=== PATIENT | female | born 1980 | race Caucasian/White ===

== ENCOUNTER 2016-10-26 17:38 | Emergency (ER) | payer SELFPAY ==
[~2016-10-26] VITALS: Ht 152.4 cm; Wt 56.0 kg
[~2016-10-26 17:38] MED LIST: ALDA100T PO; KEPP1000 PO; RIFA550 PO; TENO300 PO; ZOFR4TAB3 SL
[2016-10-26 17:42] VITALS: BP 167/93; PULSE 69; RESP 18; TEMP 98.7; O2SAT 100
[2016-10-26] MEDS ORDERED: SODIUM CHLOR 0.9% 1000 ML INJ 1,000 ML IV ONE (17:56)
[2016-10-26] MEDS ORDERED: LORazepam 2 MG/ML VIAL IVS ONE (18:00)
[2016-10-26] MEDS ORDERED: SODIUM CHLORIDE 0.9% FLUSH 10 ML FLUSH IVF PRN (18:00)
[2016-10-26 18:20] VITALS: BP 129/87; PULSE 62; RESP 13; TEMP 98.7; O2SAT 100
[2016-10-26 18:21] VITALS: BP 129/87; PULSE 63; RESP 13; O2SAT 100
[2016-10-26 18:21] LABS: AUTOMATED NEUTROPHIL # 3.1 TH/MM3 (1.8-7.7); BASOPHIL % 0.3 % (0.0-2.0); EOSINOPHIL # 0.1 TH/MM3 (0-0.4); EOSINOPHIL % 1.5 % (0.0-4.0); HEMATOCRIT 40.7 % (35.0-46.0); HEMO FLAGS DIFF FINAL; LYMPH % 20.6 % (9.0-44.0); LYMPHOCYTE # 0.9 TH/MM3 (1.0-4.8); MEAN CELL VOLUME 89.5 FL (80.0-100.0); MEAN CORPUSCULAR HGB CONC 34.6 % (32.0-36.0); MONO % 7.9 % (0.0-8.0); NEUT % 69.7 % (16.0-70.0); PLATELET COUNT 122 TH/MM3 (150-450); RED BLOOD COUNT 4.54 MIL/MM3 (4.00-5.30); RED CELL DISTRIBUTION WIDTH 12.5 % (11.6-17.2); WHITE BLOOD COUNT 4.4 TH/MM3 (4.0-11.0)
[2016-10-26] MEDS ORDERED: VIRE300T2 PO (18:26)
[2016-10-26] MEDS ORDERED: SUBO8MIS SL (18:26)
[2016-10-26] MEDS ORDERED: XIFA550T4 PO (18:26)
[2016-10-26] MEDS ORDERED: TRAZ100T6 PO (18:26)
[2016-10-26] MEDS ORDERED: ALDA100T PO (18:26)
[2016-10-26] MEDS ORDERED: KEPP10002 PO (18:26)
--- NOTE | 2016-10-26 18:29 | PD ---
HPI Chief Complaint: Seizure Time Seen by Provider: 17:47 Travel History International Travel<30 days: No Contact w/Intl Traveler<30days: No Traveled to known affect area: No History of Present Illness HPI Patient is a 35-year-old female patient is a history of epilepsy. She takes Keppra 1000 mg twice daily has been strictly compliant. She reports over the last 3 days she has had frequent seizure type episodes. [place] and was observed by her daughter to have had 2 seizure-like episodes lasting almost 2 minutes each. A postictal state occurs in between the seizure- like episodes. In the ER she reports feeling somewhat "thick headed" and has difficulty maintaining concentration. At the time of evaluation in the ER she has no nausea vomiting fever chills weakness dizziness lightheadedness or medical complaint otherwise. PFSH Past Medical History Blood Disorders: Yes (MRSA RIGHT ARM 2006) Depression: Yes Diminished Hearing: No Hepatitis: Yes (b and c ) Medical other: Yes (epilepsy ) Seizures: Yes ?: Not LMP: 10/26/16 : 1 Para: 1 Miscarriage: 0 Ovarian Cysts: Yes (LEFT) Tubal Ligation: Yes Past Surgical History Section: Yes (X 2) Cholecystectomy: Yes Social History Alcohol Use: No Tobacco Use: No (4 MOS) Substance Use: No Allergies-Medications (Allergen,Severity, Reaction): Coded Allergies: No Known Allergies (Verified , 10/26/16) Reported Meds & Prescriptions Reported Meds & Active Scripts Active Lorazepam 0.5 Mg Tab 0.5 Mg PO Q8H PRN Keppra (Levetiracetam) 500 Mg Tab 1,500 Mg PO BID 30 Days Reported Suboxone Sublingual Film (Buprenorphine-Naloxone Sublingual Film) 8-2 Mg Film 1 Film SL Unique ID number required: Trazodone (Trazodone HCl) 100 Mg Tablet 100 Mg PO HS Aldactone (Spironolactone) 100 Mg Tab 100 Mg PO DAILY Xifaxan (Rifaximin) 550 Mg Tab 550 Mg PO Q12HR Viread (Tenofovir Disoproxil Fumarate) 300 Mg Tab 300 Mg PO DAILY Keppra (Levetiracetam) 1,000 Mg Tab 1,000 Mg PO BID Review of Systems Except as stated in HPI: all other systems reviewed are Neg Physical Exam Narrative GENERAL: 35 yo F, pleasant well-nourished well-developed no acute distress SKIN: Warm and dry. HEAD: Atraumatic. Normocephalic. EYES: Pupils equal and round. No scleral icterus. No injection or drainage. ENT: No nasal bleeding or discharge. Mucous membranes pink and moist. NECK: Trachea midline. No JVD. CARDIOVASCULAR: Regular rate and rhythm. RESPIRATORY: No accessory muscle use. Clear to auscultation. Breath sounds equal bilaterally. GASTROINTESTINAL: Abdomen soft, non-tender, nondistended. Hepatic and splenic margins not palpable. MUSCULOSKELETAL: Extremities without clubbing, cyanosis, or edema. No obvious deformities. NEUROLOGICAL: Awake and alert. No obvious cranial nerve deficits. Motor grossly within normal limits. Five out of 5 muscle strength in the arms and legs. Normal speech. PSYCHIATRIC: Appropriate mood and affect; insight and judgment normal. Data Data Last Documented VS Vital Signs Date Time Temp Pulse Resp B/P Pulse Ox O2 Delivery O2 Flow Rate FiO2 10/26/16 18:21 63 13 129/87 100 Room Air 10/26/16 18:20 98.7 Vital signs reviewed Orders Complete Blood Count With Diff (10/26/16 17:56) Alcohol (Ethanol) (10/26/16 17:56) Drug Screen, Random Urine (10/26/16 17:56) Blood Glucose (10/26/16 17:56) Ecg Monitoring (10/26/16 17:56) Iv Access Insert/Monitor (10/26/16 17:56) Oximetry (10/26/16 17:56) Comprehensive Metabolic Panel (10/26/16 17:56) Sodium Chlor 0.9% 1000 Ml Inj (Ns 1000 M (10/26/16 17:56) Sodium Chloride 0.9% Flush (Ns Flush) (10/26/16 18:00) Lorazepam Inj (Ativan Inj) (10/26/16 18:00) Ua Includes Microscopic (10/26/16 17:56) Ct Brain W/O Iv Contrast(Rout) (10/26/16 ) Levetiracetam (Keppra) (10/26/16 19:00) Labs Laboratory Tests Test 10/26/16 10/26/16 18:00 18:16 Urine Color LIGHT-YELLOW Urine Turbidity CLEAR Urine pH 6.0 Urine Specific [place] 1.005 Urine Protein NEG mg/dL Urine Glucose (UA) NEG mg/dL Urine Ketones NEG mg/dL Urine Occult Blood TRACE Urine Nitrite NEG Urine Bilirubin NEG Urine Urobilinogen LESS THAN 2.0 MG/DL Urine Leukocyte Esterase NEG Urine Squamous Epithelial 2 /hpf Cells Urine Bacteria RARE /hpf Microscopic Urinalysis Comment Urine Opiates Screen NEG Urine Barbiturates Screen NEG Urine Amphetamines Screen NEG Urine Benzodiazepines Screen NEG Urine Cocaine Screen NEG Urine Cannabinoids Screen NEG White Blood Count 4.4 TH/MM3 Red Blood Count 4.54 MIL/MM3 Hemoglobin 14.1 GM/DL Hematocrit 40.7 % Mean Corpuscular Volume 89.5 FL Mean Corpuscular Hemoglobin 31.0 PG Mean Corpuscular Hemoglobin 34.6 % Concent Red Cell Distribution Width 12.5 % Platelet Count 122 TH/MM3 Mean Platelet Volume 8.5 FL Neutrophils (%) (Auto) 69.7 % Lymphocytes (%) (Auto) 20.6 % Monocytes (%) (Auto) 7.9 % Eosinophils (%) (Auto) 1.5 % Basophils (%) (Auto) 0.3 % Neutrophils # (Auto) 3.1 TH/MM3 Lymphocytes # (Auto) 0.9 TH/MM3 Monocytes # (Auto) 0.3 TH/MM3 Eosinophils # (Auto) 0.1 TH/MM3 Basophils # (Auto) 0.0 TH/MM3 CBC Comment DIFF FINAL Differential Comment Sodium Level 138 MEQ/L Potassium Level 4.2 MEQ/L Chloride Level 102 MEQ/L Carbon Dioxide Level 30.4 MEQ/L Anion Gap 6 MEQ/L Blood Urea Nitrogen 17 MG/DL Creatinine 0.85 MG/DL Estimat Glomerular Filtration 76 ML/MIN Rate Random Glucose 91 MG/DL Calcium Level 9.3 MG/DL Total Bilirubin 0.6 MG/DL Aspartate Amino Transf 63 U/L (AST/SGOT) Alanine Aminotransferase 61 U/L (ALT/SGPT) Alkaline Phosphatase 100 U/L Total Protein 8.2 GM/DL Albumin 4.2 GM/DL Ethyl Alcohol Level LESS THAN 3 MG/DL [facility] Medical Decision Making Medical Screen Exam Complete: Yes Emergency Medical Condition: Yes Medical Record Reviewed: Yes Differential Diagnosis Epilepsy, electrolyte imbalance, status epilepticus, dehydration, anemia, medication noncompliance Narrative Course CBC & BMP Diagram 10/26/16 18:16 AST 63 ALT 61 Drug Screen alonzo-negative EtOH < [address]: No acute disease The patient is resting comfortably and feels better, is alert and in no distress. The patients results and examination findings were discussed. The repeat examination is unremarkable and benign. The history, exam, diagnostic testing, and current condition do not suggest any significant pathology to warrant further testing, continued ED treatment, admission, or surgical evaluation at this point. The vital signs have been stable. The patient does not have uncontrollable pain, intractable vomiting, or other significant symptoms. The patient's condition is stable and appropriate for discharge. The patient will pursue further outpatient evaluation with a primary care physician or other designated or consulting physician as indicated in the discharge instructions. The patient expressed understanding and was agreeable with this plan. Diagnosis Primary Impression: Seizure Referrals: Neurologist 2 weeks Additional Instructions: You have a choice when it comes to health care, and we are glad that you chose [facility]. Hopefully, we have met your expectations on today's visit. You are welcome to return to [facility] at any time, as we are committed to meeting the health care needs of our community. Med/Other Pt SpecificInfo: Prescription(s) given Scripts Lorazepam 0.5 Mg Tab0.5 Mg PO Q8H PRN (AGITATION) #20 TAB Ref 0 Prov:Freddy Skinner MD 10/26/16 Levetiracetam (Keppra)500 Mg Tab1,500 Mg PO BID 30 Days Ref 0 Prov:Freddy Skinner MD 10/26/16 Disposition: 01 DISCHARGE HOME Condition: Stable Freddy Skinner MD Oct 26, 2016 18:29
[2016-10-26 18:37] LABS: BACTERIA, URINE RARE /hpf; BLOOD, URINE TRACE (NEG); GLUCOSE,URINE NEG (NEG); KETONE, URINE NEG (NEG); NITRITE,URINE NEG (NEG); SQUAMOUS EPITHELIAL CELL URINE 2 /hpf (0-5); URINE COLOR LIGHT-YELLOW (YELLW/STRAW)
[2016-10-26] MEDS ORDERED: LEVE500 PO (18:37)
[2016-10-26 18:44] LABS: ALT (GPT) 61 U/L (10-53); ANION GAP 6 MEQ/L (5-15); AST (GOT) 63 U/L (15-37); BICARBONATE 30.4 MEQ/L (21.0-32.0); BLOOD UREA NITROGEN 17 MG/DL (7-18); CHLORIDE 102 MEQ/L (98-107); GLOMERULAR FILTRATION RATE 76 ML/MIN (>89); POTASSIUM 4.2 MEQ/L (3.5-5.1); SODIUM (NA) 138 MEQ/L (136-145)
[2016-10-26 18:46] LABS: AMPHETAMINE, URINE NEG (NEG); BARBITURATES, URINE NEG (NEG); COCAINE, URINE NEG (NEG)
[2016-10-26 18:46] LABS: ALKALINE PHOSPHATASE 100 U/L (45-117); TOTAL BILIRUBIN ADULT 0.6 MG/DL (0.2-1.0)
--- NOTE | 2016-10-26 18:59 | RADRPT ---
EXAM DATE/TIME: 10/26/2016 18:44 [place] COMPARISON: No previous studies available for comparison. INDICATIONS : Seizure. RADIATION DOSE: 31.97 CTDIvol (mGy) MEDICAL HISTORY : Seizures. Hepatitis B. Hepatitis C. SURGICAL HISTORY : Cholecystectomy. Tubal ligation. ENCOUNTER: Initial ACUITY: 1 day PAIN SCALE: 3/10 LOCATION: cranial TECHNIQUE: Multiple contiguous axial images were obtained of the head. Using automated exposure control and adj ustment of the mA and/or kV according to patient size, radiation dose was kept as low as reasonably a chievable to obtain optimal diagnostic quality images. DICOM format image data is available electro nically for review and comparison. FINDINGS: CEREBRUM: The ventricles are normal for age. No evidence of midline shift, mass lesion, hemorrhage or acute in farction. No extra-axial fluid collections are seen. There is a calcified extra-axial mass within th e right frontal region measuring 12 mm consistent with probable meningioma. POSTERIOR FOSSA: The cerebellum and brainstem are intact. The 4th ventricle is midline. The cerebellopontine angle i s unremarkable. EXTRACRANIAL: The visualized portion of the orbits is intact. SKULL: The calvaria is intact. No evidence of skull fracture. CONCLUSION: 1. 12 mm calcified extra-axial right frontal mass consistent with probable meningioma. 2. No acute infarct, acute hemorrhage, mass effect or extra-axial fluid collections. Andreas Gill MD on October 26, 2016 at 18:55 Board Certified Radiologist. This report was verified electronically.
[2016-10-26] MEDS ORDERED: levETIRAcetam 500 MG TAB PO ONE (19:00)
[2016-10-26] MEDS ORDERED: LORA-373 PO (19:05)
== END 2016-10-26 19:35 | disposition home or self-care (01) ==
LOC: NEPE 17:38
DX: G40.909 Epilepsy, unspecified, not intractable, without status epilepticus (principal); F32.9 Major depressive disorder, single episode, unspecified; B19.10 Unspecified viral hepatitis B without hepatic coma; B19.20 Unspecified viral hepatitis C without hepatic coma; F17.200 Nicotine dependence, unspecified, uncomplicated
CPT/HCPCS: 70450; 80053; 80307; 81001; 85025; 96374; 99285; J2060; J7030